=== PATIENT | female | born 1990 | race African-American/Black ===

== ENCOUNTER 2019-02-25 20:51 | Emergency (ER) | payer SELFPAY ==
[~2019-02-25] VITALS: Ht 160 cm; Wt 83.9 kg
[2019-02-25 21:02] VITALS: BP 131/64
--- NOTE | 2019-02-25 21:15 | PHYS DOC ---
Adult General Chief Complaint Chief Complaint: LACERATION/AVULSION HPI HPI Patient is a 29 year old female who presents with states she was walking when she tripped and fell and hit her lip on a wall. Patient has a 1mm laceration to the inner bottom lip mucosa. It is superficial. Review of Systems Review of Systems Integument: lower inner lip laceration. Denies rash or skin lesions [] All other systems were reviewed and found to be within normal limits, except as documented in this note. Allergies Allergies Allergies Coded Allergies Type Severity Reaction Last Updated Verified No Known Drug Allergies 02/25/19 No Physical Exam Physical Exam Constitutional: Well developed, well nourished, no acute distress, non-toxic appearance. [] HENT: Normocephalic, atraumatic, bilateral external ears normal, oropharynx moist, no oral exudates, nose normal. [] Neck: Normal range of motion, no tenderness, supple, no stridor. [] Skin: Inner Lower lip laceration. Warm, dry, no erythema, no rash. [] Back: No tenderness, no CVA tenderness. [] Extremities: No tenderness, no cyanosis, no clubbing, ROM intact, no edema. [] Neurologic: Alert and oriented X 3, normal motor function, normal sensory function, no focal deficits noted. [] Psychologic: Affect normal, judgement normal, mood normal. [] Current Patient Data Vital Signs Vital Signs Date Time Temp Pulse Resp B/P (MAP) Pulse Ox O2 Delivery O2 Flow Rate FiO2 02/25/19 21:02 98.1 80 20 131/64 (86) 99 Room Air 98.1 EKG EKG [] Radiology/Procedures Radiology/Procedures [] Course & Med Decision Making Course & Med Decision Making No dental injury. No tongue injury. Laceration is superficial does not affect the vermilion border. Patient is due for a tetanus shot but is refusing it. Patient states she does not have any pain. Patient denies losing consciousness, dizziness, headache, nausea, vomiting, abdominal pain, shortness of air, chest pain, neck pain, back pain. Superficial laceration does not need to be sutured as it is very small and superficial. There is no bleeding. Dragon Disclaimer Dragon Disclaimer This electronic medical record was generated, in whole or in part, using a voice recognition dictation system. Departure Departure Impression: Primary Impression: Encounter for medical screening examination Disposition: HOME, SELF-CARE Condition: STABLE Referrals: NO PCP (PCP) Patient Instructions: Medical Screening Exam Additional Instructions: Keep the area clean. Follow up with primary care if needed. TREY ROSEN INTER[employer]CH[employer] COORDINATOR Feb 25, 2019 21:15
== END 2019-02-25 21:25 | disposition home or self-care (01) ==
LOC: ER 20:51
DX: S01.511A Laceration without foreign body of lip, initial encounter (principal); W18.09XA Striking against other object with subsequent fall, initial encounter; Y93.01 Activity, walking, marching and hiking; Y92.89 Other specified places as the place of occurrence of the external cause; Y99.8 Other external cause status
CPT/HCPCS: 99281

== ENCOUNTER 2020-07-26 15:11 | Emergency (ER) | payer BC ==
[~2020-07-26] VITALS: Ht 160 cm; Wt 84.1 kg
[2020-07-26] MEDS ORDERED: METH4TAB2 PO (17:27)
--- NOTE | 2020-07-26 17:27 | ED.ADGEN ---
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 Drug Use: None General Adult EDM: Chief Complaint: SORE THROAT HPI: HPI: Patient is a 30 year old AA female who presents emergency department with complaints of a severe sore throat since yesterday. Patient states she has had some nasal congestion and postnasal drainage with a productive cough with clear to yellow sputum for the last few days. Patient reports that she was exposed to COVID-19 last week, she was tested for the virus 4 days ago and was told her results were negative. She denies any chest pain, shortness of breath, nausea, vomiting, diarrhea, rash, headache, or loss of taste/smell. Patient reports that her left ear has felt congested as well as her nose. She denies any bleeding or discharge from her left ear. The patient denies any dental pain. She currently rates her throat pain a 10 out of 10 on the pain scale, she denies any alleviating factors, the pain is worse with swallowing. Review of Systems: Review of Systems: Complete ROS is negative unless otherwise noted in HPI. Allergies: Allergies: Allergies Coded Allergies Type Severity Reaction Last Updated Verified No Known Drug Allergies 02/25/19 No Physical Exam: PE: See Above Constitutional: Well developed, well nourished, no acute distress, normal appearance HENT: Normocephalic, atraumatic, bilateral external ears normal, bilateral TMs normal, cobblestone appearance of posterior pharynx without erythema, 1+ tonsils bilaterally without exudate, normal oropharynx moist; nose congested with erythema and edema of the nasal turbinates bilaterally Eyes: PERRLA, conjunctiva injected bilaterally, no discharge. [] Neck: Normal range of motion, supple, no stridor. [] Cardiovascular:Heart rate regular rhythm, no murmur [] Lungs & Thorax: Bilateral breath sounds clear to auscultation, Respirations even and unlabored, no retractions, no respiratory distress Skin: Warm, dry, no erythema, no rash. [] Back: No tenderness Extremities: No cyanosis, ROM intact Neurologic: Alert and oriented X 3, no focal deficits noted. [] Psychologic: Affect normal, judgement normal, mood normal. Current Patient Data: Vital Signs: Vital Signs Date Time Temp Pulse Resp B/P (MAP) Pulse Ox O2 Delivery O2 Flow Rate FiO2 07/26/20 16:20 98.2 86 118/68 (85) 97 98.2 07/26/20 15:42 18 Room Air EKG: EKG: [] Heart Score: C/O Chest Pain: No Risk Factors: Risk Factors: DM, Current or recent (<one month) smoker, HTN, HLP, family history of CAD, obesity. Risk Scores: Score 0 - 3: 2.5% MACE over next 6 weeks - Discharge Home Score 4 - 6: 20.3% MACE over next 6 weeks - Admit for Clinical Observation Score 7 - 10: 72.7% MACE over next 6 weeks - Early Invasive Strategies Radiology/Procedures: Radiology/Procedures: [] Course & Med Decision Making: Course & Med Decision Making Pertinent Labs and Imaging studies reviewed. (See chart for details) Patient presented emergency room evaluation of sore throat, nasal congestion, and productive cough. Patient tested negative for COVID-19 on July 22, 2020. I offered to retest patient for Covid, patient declined Covid testing. Rapid strep test was negative. Patient's vital signs are stable in the emergency department. I advised patient that her symptoms are likely due to allergic rhinitis encouraged her to purchase some Zyrtec and Flonase, will prescribe a Medrol Dosepak. Instructed patient to follow-up with her primary care doctor in the next 1 to 2 days, return to the ER if symptoms worsen or fever develops. Patient verbalized an understanding of home care, medications, follow-up, and return to ED instructions and was in agreement with the plan of care. [] Dragon Disclaimer: Dragon Disclaimer: This electronic medical record was generated, in whole or in part, using a voice recognition dictation system. Departure Departure Impression: Primary Impression: Allergic rhinitis Additional Impression: URI (upper respiratory infection) Disposition: 01 DC HOME SELF CARE/HOMELESS Condition: STABLE Referrals: NO PCP (PCP) Patient Instructions: Allergic Rhinitis, Upper Respiratory Infection, Adult, Gpnz-[id number] Additional Instructions: Fill the prescription(s) and use as directed. Recommend that you take 10 mg of generic Zyrtec (cetirizine) or Claritin at bedtime and use over the counter Flonase (fluticasone) nasal spray 2 sprays each nostril once daily in the morning. You may take Tylenol or ibuprofen as needed for pain/fever. Increase clear fluids. Avoid triggers such as smoke, fragrance, dust, and pollen. You may take OTC cough suppressants as needed. Follow-up with your primary care doctor if symptoms persist, return to the ER if symptoms worsen. Scripts Methylprednisolone (MEDROL) 4 Mg Tab.ds.pk 1 PKG PO UD for 6 Days, #1 PKG 0 Refills Prov: JOANIE HOLLAND APRN 07/26/20 Problem Qualifiers Primary Impression: Allergic rhinitis Allergic rhinitis trigger: unspecified Allergic rhinitis seasonality: unspecified Qualified Codes: J30.9 - Allergic rhinitis, unspecified Additional Impression: URI (upper respiratory infection) URI type: unspecified URI Qualified Codes: J06.9 - Acute upper respiratory infection, unspecified JOANIE HOLLAND APRN Jul 26, 2020 17:27
[2020-07-26 17:50] VITALS: BP 120/79
== END 2020-07-26 17:50 | disposition home or self-care (01) ==
LOC: ER 15:11
DX: J06.9 Acute upper respiratory infection, unspecified (principal); J30.9 Allergic rhinitis, unspecified; R09.81 Nasal congestion; R05 Cough; F17.200 Nicotine dependence, unspecified, uncomplicated; Z98.890 Other specified postprocedural states
CPT/HCPCS: 87070; 87880; 99283